=== PATIENT | male | born 1980 | race Caucasian/White ===

== ENCOUNTER 2022-02-07 23:02 | Emergency (ER) | payer SELFPAY ==
[~2022-02-07] VITALS: Ht 180.3 cm; Wt 104.3 kg
[2022-02-07 23:10] VITALS: BP 151/73
[2022-02-07] MEDS ORDERED: ACETAMINOPHEN EXTRA STRENGTH 500 MG TAB PO ONE (23:20)
[2022-02-08 00:18] VITALS: BP 132/80
== END 2022-02-08 00:18 ==
LOC: MED 23:02
DX: S46.812A Strain of other muscles, fascia and tendons at shoulder and upper arm level, left arm, initial encounter (principal); Z02.89 Encounter for other administrative examinations; Z98.890 Other specified postprocedural states; V89.2XXA Person injured in unspecified motor-vehicle accident, traffic, initial encounter; Y93.89 Activity, other specified; Y92.89 Other specified places as the place of occurrence of the external cause; Y99.8 Other external cause status
CPT/HCPCS: 73030; 99283